=== PATIENT | female | born 1975 | race Caucasian/White ===

== ENCOUNTER 2016-08-14 17:20 | Emergency (ER) | payer BC ==
--- NOTE | 2016-08-14 18:47 | RAD ---
INDICATION: Shortness of breath. COMPARISON: Comparison is made with a prior chest x-ray study from [facility] 2008. TECHNIQUE: A portable view of the chest was obtained. FINDINGS: Cardiac and mediastinal contours appear to be within normal limits. The lungs are clear. No pleural effusion is seen. There appears to be interposition of the colon between the liver and right hemidiaphragm. IMPRESSION: NO EVIDENCE FOR ACUTE DISEASE.
[2016-08-14 18:57] LABS: Hematocrit 38 % (35-47); Hemoglobin 12.9 g/dl (12.0-16.0); Mean Corpuscular HGB Conc 34 g/dl (31-36); Mean Corpuscular Hemoglobin 32 pg (27-31); Mean Corpuscular Volume 95 fL (80-97); Mean Platelet Volume 9 um3 (7.4-10.4); Red Blood Count 3.98 10^6/ul (4.0-5.4); Red Cell Distribution Width 13 % (10.5-15)
[2016-08-14 19:12] LABS: ALT 19 U/L (7-52); Alkaline Phosphatase 47 U/L (34-104); BUN/Creatinine Ratio 8.5 (8-20); Blood Urea Nitrogen 7 mg/dL (6-24); C Reactive Protein 1.48 mg/L (< 5.00); CO2 Carbon Dioxide 24 mmol/L (22-32); Calcium 9.1 mg/dL (8.6-10.3); Chloride 100 mmol/L (101-111); Creatine Kinase 110 U/L (10-223); EGFR African American 98.3 (>60); EGFR Non-African American 76.5 (>60); Glucose 99 mg/dL (70-100); Sodium 132 mmol/L (133-145)
[2016-08-14 19:16] LABS: AST 26 U/L (13-39); Anion Gap 8 mmol/L (2-11); Potassium 3.7 mmol/L (3.5-5.0)
[2016-08-14] MEDS ORDERED: NS 0.9% 1000 ML* 1,000 ML IV ONE (19:38)
[2016-08-14] MEDS ORDERED: Iohexol 350* (CONTRAST) 500 ML MDV IV ONE (19:59)
[2016-08-14 20:02] LABS: Amylase 30 U/L (29-103); Lipase 22 U/L (11.0-82.0)
--- NOTE | 2016-08-14 21:18 | RAD ---
INDICATION: Dyspnea, right upper quadrant pain, history of melanoma. COMPARISON: Comparison is made with a prior CT of the chest, abdomen and pelvis from November 28, 2009. Correlation is also made with a prior chest x-ray study from August 14, 2016. TECHNIQUE: A CT angiogram of the chest and a CT of the abdomen and pelvis was performed with intravenous contrast following intravenous injection of 100 ml of Omnipaque 350 nonionic contrast. Contiguous axial sections were obtained from the lung apices through the symphysis pubis. Images were reconstructed in the coronal and sagittal planes. FINDINGS: CT ANGIOGRAM OF THE CHEST: There is relatively homogeneous opacification of the pulmonary arteries. No intraluminal filling defect or pulmonary embolism is seen. The heart is within normal limits in size. No pericardial effusion is present. The thoracic aorta is normal in caliber and demonstrates homogeneous contrast opacification without evidence for dissection. No significant enlarged mediastinal or hilar lymph nodes are seen. There are mild dependent bilateral lower lobe infiltrates most consistent with subsegmental atelectasis. No pleural effusion or pneumothorax is present. CT OF THE ABDOMEN AND PELVIS: There is [id number] enlargement of the liver without significant focal abnormality. The liver is decreased in attenuation consistent with fatty infiltration. The spleen is normal in size without focal abnormality. No calcified gallstones are seen. The pancreas appears to be within normal limits. The kidneys and adrenal glands are normal in size. No hydronephrosis is seen. No significant focal renal abnormality is seen. The abdominal aorta is normal in caliber. No significant enlarged retroperitoneal lymph nodes are seen. The stomach, small and large bowel appear nondistended. The appendix appears to be within normal limits. There is no evidence for diverticulitis or colitis. There is a anterior abdominal wall hernia containing fat, a small amount of fluid and mild stranding present in the midline just above the periumbilical region. There is also a smaller periumbilical hernia containing fat.. There is a right inguinal hernia containing fat. The uterus is normal in size and retroverted. There is a 2.0 x 1.0 cm involuting left follicular cyst. No free intraperitoneal air or fluid is seen. No significant focal osseous abnormality is seen. IMPRESSION: 1. NO EVIDENCE FOR PULMONARY EMBOLISM. 2. ANTERIOR ABDOMINAL AND RIGHT INGUINAL HERNIAS DESCRIBED. 3. HEPATOMEGALY AND HEPATIC STEATOSIS.
[2016-08-14 22:17] VITALS: BP 132/90
--- NOTE | 2016-08-15 03:01 | ED ---
Carley Weaver Alok, scribed for Darrel Cristina MD on 08/14/16 at 1958 . Shortness of Breath - HPI Summary HPI Summary: 40F presents to the ED for SOB at rest since last night. Pt states that her SOB worsens while in the supine position and improves when sitting up. Pt also notes right-sided abd pain described as sharp which comes and goes in waves lasting minutes at a time. Pt notes chest "heaviness" since today. Pt notes constant lower back pain worse on the left side. Pt also notes slight nausea as well as a subjective fever yesterday. Pt notes a right sided DALEY, right shoulder pain, and groin pain that comes and goes in waves. Pt notes a hernia over the umbilical from 2 years ago with soreness that comes and goes. Pt notes chronic lower extremity edema same as baseline. Pt denies vomiting or loss of appetite. Pt denies cough, rhinorrhea, or post nasal drip. Pt denies difficulty urinating or changes in urine color. Pt denies chills or diaphoresis. Pt denies wheezing. Pt denies leg pain. PMHx includes lymphedema and h/o melanoma. Pt is a daily ETOH drinker. - History of Current Complaint Chief Complaint: EDGeneral Time Seen by Provider: 08/14/16 19:12 Hx Obtained From: Patient Onset/Duration: Lasting Days, Still Present Current Severity: Moderate Dyspnea At: Rest Aggrevating Factors: Recumbent Position Alleviating Factors: Upright Position Associated Signs & Symptoms: Fever - subjective, Edema - Allergy/Home Medications Allergies/Adverse Reactions: Allergies Allergy/AdvReac Type Severity Reaction Status Date / Time Morphine Allergy Severe Rash And Verified 04/29/15 10:51 Itching PMH/Surg Hx/FS Hx/Imm Hx Endocrine/Hematology History: Denies: Hx Diabetes, Hx Thyroid Disease Cardiovascular History: Denies: Hx Hypertension, Hx Pacemaker/ICD Respiratory History: Denies: Hx Asthma, Hx Chronic Obstructive Pulmonary Disease (COPD) GI History: Denies: Hx Ulcer Sensory History: Denies: Hx Hearing Aid Psychiatric History: Denies: Hx Panic Disorder - Cancer History Cancer Type, Location and Year: stage three Melanoma 2009 - Surgical History Surgery Procedure, Year, and Place: chemo. x2. right wrist x2, RIGHT INGUINAL LYMPH NODES REMOVED, RIGHT UPPER LEG SURGERY FOR MELANOMA. TUBAL. HYSTERECTOMY Infectious Disease History: No Infectious Disease History: Denies: Hx Clostridium Difficile, Hx Hepatitis, Hx Human Immunodeficiency Virus (HIV), Hx of Known/Suspected MRSA, Hx Shingles, Hx Tuberculosis, Hx Known/ Suspected VRE, Hx Known/Suspected VRSA, History Other Infectious Disease, Traveled Outside the [place] in Last 30 Days - Family History Known Family History: Negative: Cardiac Disease, Hypertension, Diabetes, Blood Disorder - Social History Occupation: Employed Full-time Lives: With Family Alcohol Use: Daily Alcohol Amount: 1 GLASSS WINE/DAY Substance Use Type: Reports: None Smoking Status (MU): Never Smoked Tobacco Have You Smoked in the Last Year: No Review of Systems Positive: Fever - subjective. Negative: Chills, Skin Diaphoresis Positive: Chest Pain - "heaviness" Positive: Shortness Of Breath. Negative: Cough Positive: Abdominal Pain, Nausea. Negative: Vomiting Genitourinary: Other - No changes in urine color or difficulty urinating Positive: pain - groin Positive: Myalgia - right shoulder, Edema - chronic lower extremity, Other - lower back pain Positive: Headache All Other Systems Reviewed And Are Negative: Yes Physical Exam - Summary Physical Exam Summary: The patient is well-nourished in no acute distress and in no acute pain. The skin is warm and dry and skin color reflects adequate perfusion. HEENT: The head is normocephalic and atraumatic. The pupils are equal and reactive. The conjunctivae are clear and without drainage. Nares are patent and without drainage. Mouth reveals moist mucous membranes and the throat is without erythema and exudate. The external ears are intact. The ear canals are patent and without drainage. The tympanic membranes are intact. No rhinorrhea Neck is supple with full range of motion and non-tender. There are no carotid bruits. There is no neck vein distension. Respiratory: Chest is non-tender. Lungs are clear to auscultation and breath sounds are symmetrical and equal. Cardiovascular: Hear is regular rate and rhythm. There is no murmur or rub auscultated. There is no peripheral edema and pulses are symmetrical and equal. Abdomen: Right upper quadrant tenderness to palpitation. No distension. No guarding. No rebound. There are normal bowel sounds heard in all four quadrants and there is no organomegaly palpated. Musculoskeletal: Lumbar paratival muscular tenderness. No paraspinal tenderness Extremities are non-tender with full range of motion. There is good capillary refill. There is no peripheral edema or calf tenderness elicited. Neurological: Patient is alert and oriented to person, place and time. The patient has symmetrical motor strength in all four extremities. Cranial nerves are grossly intact. Deep tendon reflexes are symmetrical and equal in all four extremities. Psychiatric: The patient is slightly anxious. Triage Information Reviewed: Yes Vital Signs On Initial Exam: Initial Vitals Temp Pulse Resp BP Pulse Ox 97.6 F 78 20 137/100 100 08/14/16 17:25 08/14/16 17:25 08/14/16 17:25 08/14/16 17:25 08/14/16 17:25 Vital Signs Reviewed: Yes - [place] Coma Scale Coma Scale Total: 15 Diagnostics - Vital Signs Vital Signs Temp Pulse Resp BP Pulse Ox 08/14/16 17:28 98.0 F 72 20 137/100 100 08/14/16 17:25 97.6 F 78 20 137/100 100 - Laboratory Lab Results: Lab Results 08/14/16 08/14/16 08/14/16 Range/Units 18:45 18:45 18:45 WBC 7.0 (3.5-10.8) 10^3/ul RBC 3.98 L (4.0-5.4) 10^6/ul Hgb 12.9 (12.0-16.0) g/dl Hct 38 (35-47) % MCV 95 (80-97) fL MCH 32 H (27-31) pg MCHC 34 (31-36) g/dl RDW 13 (10.5-15) % Plt Count 188 (150-450) 10^3/ul MPV 9 (7.4-10.4) um3 Neut % (Auto) 56.2 (38-83) % Lymph % (Auto) 35.6 (25-47) % Parke % (Auto) 6.6 (1-9) % Eos % (Auto) 0.6 (0-6) % Baso % (Auto) 1.0 (0-2) % Absolute Neuts (auto) 3.9 (1.5-7.7) 10^3/ul Absolute Lymphs (auto) 2.5 (1.0-4.8) 10^3/ul Absolute Monos (auto) 0.5 (0-0.8) 10^3/ul Absolute Eos (auto) 0 (0-0.6) 10^3/ul Absolute Basos (auto) 0.1 (0-0.2) 10^3/ul Absolute Nucleated RBC 0 10^3/ul Nucleated RBC % 0 INR (Anticoag Therapy) 0.78 L (0.89-1.11) APTT 21.0 L (26.0-36.3) seconds D-Dimer, Quantitative < 200 (Less Than 230) ng/mL Sodium 132 L (133-145) mmol/L Potassium 3.7 (3.5-5.0) mmol/L Chloride 100 L (101-111) mmol/L Carbon Dioxide 24 (22-32) mmol/L Anion Gap 8 (2-11) mmol/L BUN 7 (6-24) mg/dL Creatinine 0.82 (0.51-0.95) mg/dL Est GFR ( Amer) 98.3 (>60) Est GFR (Non-Af Amer) 76.5 (>60) BUN/Creatinine Ratio 8.5 (8-20) Glucose 99 (70-100) mg/dL Lactic Acid (0.5-2.0) mmol/L Calcium 9.1 (8.6-10.3) mg/dL Total Bilirubin 0.30 (0.2-1.0) mg/dL AST 26 (13-39) U/L ALT 19 (7-52) U/L Alkaline Phosphatase 47 (34-104) U/L Total Creatine Kinase 110 (10-223) U/L CK-MB (CK-2) 2.3 (0.6-6.3) ng/mL Troponin I 0.00 (<0.04) ng/mL C-Reactive Protein 1.48 (< 5.00) mg/L B-Natriuretic Peptide ( - 100) pg/mL Total Protein 7.0 (6.4-8.9) g/dL Albumin 4.0 (3.2-5.2) g/dL Globulin 3.0 (2-4) g/dL Albumin/Globulin Ratio 1.3 (1-3) Beta HCG, Quant < 0.60 mIU/mL 08/14/16 08/14/16 Range/Units 18:45 18:45 WBC (3.5-10.8) 10^3/ul RBC (4.0-5.4) 10^6/ul Hgb (12.0-16.0) g/dl Hct (35-47) % MCV (80-97) fL MCH (27-31) pg MCHC (31-36) g/dl RDW (10.5-15) % Plt Count (150-450) 10^3/ul MPV (7.4-10.4) um3 Neut % (Auto) (38-83) % Lymph % (Auto) (25-47) % Parke % (Auto) (1-9) % Eos % (Auto) (0-6) % Baso % (Auto) (0-2) % Absolute Neuts (auto) (1.5-7.7) 10^3/ul Absolute Lymphs (auto) (1.0-4.8) 10^3/ul Absolute Monos (auto) (0-0.8) 10^3/ul Absolute Eos (auto) (0-0.6) 10^3/ul Absolute Basos (auto) (0-0.2) 10^3/ul Absolute Nucleated RBC 10^3/ul Nucleated RBC % INR (Anticoag Therapy) (0.89-1.11) APTT (26.0-36.3) seconds D-Dimer, Quantitative (Less Than 230) ng/mL Sodium (133-145) mmol/L Potassium (3.5-5.0) mmol/L Chloride (101-111) mmol/L Carbon Dioxide (22-32) mmol/L Anion Gap (2-11) mmol/L BUN (6-24) mg/dL Creatinine (0.51-0.95) mg/dL Est GFR ( Amer) (>60) Est GFR (Non-Af Amer) (>60) BUN/Creatinine Ratio (8-20) Glucose (70-100) mg/dL Lactic Acid 1.3 (0.5-2.0) mmol/L Calcium (8.6-10.3) mg/dL Total Bilirubin (0.2-1.0) mg/dL AST (13-39) U/L ALT (7-52) U/L Alkaline Phosphatase (34-104) U/L Total Creatine Kinase (10-223) U/L CK-MB (CK-2) (0.6-6.3) ng/mL Troponin I (<0.04) ng/mL C-Reactive Protein (< 5.00) mg/L B-Natriuretic Peptide 11 ( - 100) pg/mL Total Protein (6.4-8.9) g/dL Albumin (3.2-5.2) g/dL Globulin (2-4) g/dL Albumin/Globulin Ratio (1-3) Beta HCG, Quant mIU/mL Result Diagrams: 08/14/16 18:45 08/14/16 18:45 Lab Statement: Any lab studies that have been ordered have been reviewed, and results considered in the medical decision making process. - Radiology CXR Xray Interpretation: Positive (See Comments) - IMPRESSION: NO EVIDENCE FOR ACUTE DISEASE. Radiology Interpretation Completed By: Radiologist - CT Chest/Abd/Pel CTA CT Interpretation: Positive (See Comments) - 1. NO EVIDENCE FOR PULMONARY EMBOLISM. 2. ANTERIOR ABDOMINAL AND RIGHT INGUINAL HERNIAS DESCRIBED. 3. HEPATOMEGALY AND HEPATIC STEATOSIS. CT Interpretation Completed By: Radiologist - EKG 1735 Cardiac Rate: Other Rate - [address] Segment: Non-Specific EKG Interpretation: Left axis. Poor R-wave progression. No STEMI. Course/Dx - Course Course Of Treatment: Pt presents with SOB and abd pain. Concern for PE due to h/ o melanoma. Even though DDimer negative, still concerned for PE since pt is dismic when supine. - Diagnoses Differential Diagnosis/HQI/PQRI: Positive: CHF, IN, Pneumonia, Pulmonary Embolism, Other - cholelithiasis, ventral hernia Provider Diagnoses: Unspecified abdominal pain, SOB (shortness of breath) Discharge - Discharge Plan Condition: Stable Disposition: HOME Patient Education Materials: Abdominal Pain (ED), Dyspnea (ED) Referrals: Issac Aggarwal MD [Primary Care Provider] - [facility] [Outside] The documentation as recorded by the Carley levine Alok accurately reflects the service I personally performed and the decisions made by , Darrel Cristina MD.
== END 2016-08-14 22:16 | disposition home or self-care (01) ==
LOC: ED 17:20
DX: R10.9 Unspecified abdominal pain (principal); R06.02 Shortness of breath; R50.9 Fever, unspecified; R07.9 Chest pain, unspecified; R11.0 Nausea; R51 Headache
CPT/HCPCS: 36415; 71010; 71275; 74177; 80053; 82150; 82550; 82553; 83605; 83690; 83880; 84484; 84702; 85025; 85379; 85610; 85730; 86140; 93005; 99282; Q9967

== ENCOUNTER 2016-08-18 21:37 | Emergency (ER) | payer BC ==
[2016-08-18 22:01] VITALS: BP 136/99
[2016-08-18] MEDS ORDERED: Ketorolac INJ* 60 MG/2 ML VIAL IM ONE (22:05)
[2016-08-18] MEDS ORDERED: Ketorolac INJ* 30 MG/ML 1 ML VIAL ONE (22:22)
--- NOTE | 2016-08-18 22:22 | RAD ---
HISTORY: Trauma COMPARISONS: June 02, 2014 TECHNIQUE: Multiple contiguous axial CT scans were obtained of the head without intravenous contrast. FINDINGS: Evaluation is limited by streak artifact from metallic earrings, and by patient motion artifact. HEMORRHAGE/INFARCT: There is no hemorrhage or acute infarct. MASSES/SHIFT: There is no mass or shift. EXTRA-AXIAL SPACES: There are no extra-axial fluid collections. SULCI AND VENTRICLES: The sulci and ventricles are normal in size and position for the patient's stated age. CEREBRUM: There are no focal parenchymal abnormalities. BRAINSTEM: There are no focal parenchymal abnormalities. CEREBELLUM: There are no focal parenchymal abnormalities. VESSELS: The vessels are grossly normal. PARANASAL SINUSES: The paranasal sinuses are clear. ORBITS: The orbits are unremarkable. BONES AND SOFT TISSUE: No bone or soft tissue abnormalities are noted. OTHER: None IMPRESSION: LIMITED STUDY. NO ACUTE INTRACRANIAL PATHOLOGY.
[2016-08-18] MEDS ORDERED: Ketorolac INJ* 30 MG/ML 1 ML VIAL IV PUSH ONE (22:24)
--- NOTE | 2016-08-18 22:28 | RAD ---
HISTORY: Trauma, history of melanoma COMPARISONS: MRI dated January 30, 2015 TECHNIQUE: Multiple contiguous axial CT scans were obtained of the lumbar spine without intravenous contrast, with coronal and sagittal multiplanar reformations. FINDINGS: SPINAL CANAL: Evaluation of the central canal is limited on CT technique; however, there is no obvious canalicular mass or epidural hemorrhage. ALIGNMENT: The alignment is normal. VERTEBRAL BODIES: The vertebral bodies are preserved in height. The bones are normal in attenuation. JOINTS: There is no subluxation or dislocation MUSCULATURE: Unremarkable INTERVERTEBRAL DISCS: There is mild diffuse loss of intervertebral disc height throughout the spine. AXIAL IMAGES: There is no osseous neural foraminal narrowing or central canal stenosis. SOFT TISSUES: The bladder is distended. 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 IMPRESSION: NO ACUTE OSSEOUS INJURY TO THE LUMBAR SPINE
--- NOTE | 2016-08-18 22:30 | RAD ---
HISTORY: Trauma, head injury COMPARISONS: July 20, 2006 TECHNIQUE: Multiple contiguous axial CT scans were obtained of the cervical spine without intravenous contrast, with coronal and sagittal multiplanar reformations. FINDINGS: Evaluation is somewhat limited by patient motion and by metallic streak artifact from metallic earrings. BRAIN: The visualized brain is unremarkable CENTRAL CANAL: Evaluation of the central canal is limited on CT technique, however there is no obvious canalicular mass or epidural hemorrhage. ALIGNMENT: The alignment is normal, without subluxation or dislocation. VERTEBRAL BODIES: The odontoid process is intact. The atlantoaxial intervals are symmetric. The vertebral bodies are normal in attenuation, without fracture. JOINTS: There is osteoarthritis of the atlantoaxial articulation. There is no subluxation or dislocation. MUSCULATURE: Unremarkable INTERVERTEBRAL DISCS: There is mild diffuse loss of intervertebral disc height. AXIAL IMAGES: On axial images, there is no osseous neural foraminal narrowing or central canal stenosis. SOFT TISSUES: The visualized soft tissues of the neck are unremarkable. The prevertebral fat stripe is preserved. OTHER: None. IMPRESSION: MILD DEGENERATIVE CHANGES. NO ACUTE OSSEOUS INJURY TO THE CERVICAL SPINE
[2016-08-18] MEDS ORDERED: oxyCODONE/Acetamin 5/325 MG* TAB PO ONE (23:05)
[2016-08-18] MEDS ORDERED: LORazepam INJ* 2 MG/ML 1 ML VIAL IV ONE (23:05)
--- NOTE | 2016-08-19 07:28 | RAD ---
HISTORY: Left ankle trauma COMPARISONS: None VIEWS: 3, Frontal, lateral, and oblique views of the left ankle FINDINGS: BONE DENSITY: Normal. BONES: There is no displaced fracture. JOINTS: There is no arthropathy. ALIGNMENT: There is no dislocation. SOFT TISSUES: Unremarkable. OTHER FINDINGS: None. IMPRESSION: NO ACUTE OSSEOUS INJURY. IF SYMPTOMS PERSIST, RECOMMEND REPEAT IMAGING.
--- NOTE | 2016-08-19 07:30 | RAD ---
HISTORY: left knee trauma COMPARISONS: None VIEWS: 4, Frontal, lateral, axial, and oblique views of the left knee FINDINGS: BONE DENSITY: Normal. BONES: There is no displaced fracture. JOINTS: There is mild medial compartment and patellofemoral joint space narrowing. There is no suprapatellar joint effusion or lipohemarthrosis. ALIGNMENT: There is no dislocation. SOFT TISSUES: Unremarkable. OTHER FINDINGS: None. IMPRESSION: MILD OSTEOARTHRITIS. NO ACUTE OSSEOUS INJURY. IF SYMPTOMS PERSIST, RECOMMEND REPEAT IMAGING.
--- NOTE | 2016-08-19 11:08 | ED ---
Debbie Weaver Edward, scribed for Daljit Wilson MD on 08/18/16 at 2235 . Adult Trauma - HPI Summary HPI Summary: 40 y/o female BIBA to ED s/p fall and multiple LOC. Patient tripped while mowing her lawn and hit her head on a propane tank with unwitnessed LOC. Patient stayed laying on the ground until EMS arrival. On scene, EMS sat patient up, and she had another brief LOC. Associated sx: left ankle, neck, head and shoulder pain; nausea and anxiety. Patient remembers tripping. Denies blood thinners. - History of Current Complaint Chief Complaint: EDHeadInjury Stated Complaint: HEAD INJURY Time Seen by Provider: 08/18/16 21:43 Hx Obtained From: Patient Mechanism of Injury: Blunt Trauma - Fell while mowing lawn, hit head on propane tank, Direct Blow Mechanism of Injury (MVC): VS Stationary Object - Hit head on propane tank Loss of Consciousness: brief (seconds) Onset/Duration: Traumatic - Hit head after tripping while mowing lawn, Still Present - Pain in left ankle, head, neck and shoulder Onset of Pain: Immediate Onset Severity: Severe Current Severity: Moderate Location: Head, Extremities - Left ankle Associated Signs & Symptoms: Positive: Nausea/Vomiting, Other: - Anxiety - Allergy/Home Medications Allergies/Adverse Reactions: Allergies Allergy/AdvReac Type Severity Reaction Status Date / Time Morphine Allergy Severe Rash And Verified 04/29/15 10:51 Itching PMH/Surg Hx/FS Hx/Imm Hx Previously Healthy: Yes Endocrine/Hematology History: Denies: Hx Diabetes, Hx Thyroid Disease Cardiovascular History: Denies: Hx Hypertension, Hx Pacemaker/ICD Respiratory History: Denies: Hx Asthma, Hx Chronic Obstructive Pulmonary Disease (COPD) GI History: Denies: Hx Ulcer Sensory History: Denies: Hx Hearing Aid Psychiatric History: Denies: Hx Panic Disorder - Cancer History Cancer Type, Location and Year: stage three Melanoma 2009 - Surgical History Surgery Procedure, Year, and Place: chemo. x2. right wrist x2, RIGHT INGUINAL LYMPH NODES REMOVED, RIGHT UPPER LEG SURGERY FOR MELANOMA. TUBAL. HYSTERECTOMY Infectious Disease History: Denies: Hx Clostridium Difficile, Hx Hepatitis, Hx Human Immunodeficiency Virus (HIV), Hx of Known/Suspected MRSA, Hx Shingles, Hx Tuberculosis, Hx Known/ Suspected VRE, Hx Known/Suspected VRSA, History Other Infectious Disease, Traveled Outside the [place] in Last 30 Days - Family History Known Family History: Negative: Cardiac Disease, Hypertension, Diabetes, Blood Disorder - Social History Occupation: Employed Full-time Lives: With Family Alcohol Use: Daily Alcohol Amount: 1 GLASSS WINE/DAY Substance Use Type: Reports: None Smoking Status (MU): Never Smoked Tobacco Have You Smoked in the Last Year: No Review of Systems Constitutional: Negative Eyes: Negative ENT: Negative Cardiovascular: Negative Respiratory: Negative Positive: Nausea Genitourinary: Negative Positive: Decreased ROM - Left ankle, Other - Left ankle, head, neck and shoulder pain Skin: Negative Positive: Syncope - 2x with LOC Psychological: Normal All Other Systems Reviewed And Are Negative: Yes Physical Exam Triage Information Reviewed: Yes Vital Signs On Initial Exam: Initial Vitals Temp Pulse Resp BP Pulse Ox 98.4 F 79 20 136/99 96 08/18/16 21:43 08/18/16 21:43 08/18/16 21:43 08/18/16 21:43 08/18/16 21:43 Vital Signs Reviewed: Yes Appearance: Positive: Well-Appearing, No Pain Distress Skin: Positive: Warm, Skin Color Reflects Adequate Perfusion, Dry Head/Face: Positive: Normal Head/Face Inspection Eyes: Positive: Normal ENT: Positive: Normal ENT inspection Neck: Positive: Tenderness @ - Midline neck Respiratory/Lung Sounds: Positive: Clear to Auscultation, Breath Sounds Present Cardiovascular: Positive: RRR Abdomen Description: Positive: Nontender, Soft Bowel Sounds: Positive: Present Musculoskeletal: Positive: Pain @ - tender left distal clavicle; tender to ROM left ankle, no laxity Neurological: Positive: Normal Psychiatric: Positive: Normal, Affect/Mood Appropriate Diagnostics - Vital Signs Vital Signs Temp Pulse Resp BP Pulse Ox 08/18/16 23:20 16 08/18/16 21:43 98.4 F 79 20 136/99 96 - Laboratory Lab Statement: Any lab studies that have been ordered have been reviewed, and results considered in the medical decision making process. - CT Brain CT CT Interpretation: No Acute Changes - Limited study. No acute intracranial pathology. CT Interpretation Completed By: Radiologist CT Lumbar Spine CT Interpretation: No Acute Changes - No acute osseous injury to the lumbar spine CT Interpretation Completed By: Radiologist CT Cervical Spine CT Interpretation: No Acute Changes - Mild degenerative changes. No acute osseous injury to the cervical spine. CT Interpretation Completed By: Radiologist - EKG 1 EKG Interpretation: 21:43 - Sinus rhythm, nonspecific changes EKG Comparison: No Significant Change Adult Trauma Course/Dx - Course Course Of Treatment: Ms. Tijerina took a serious mechanical fall involving hitting her head and losing consciousness. When she sat up after regaining consciousness, it hqappened again. She came in C/O left shoulder and ankle pain and neck pain. She was tender to palpated her neck and clavicular area and tender to testing her ankle although there was no laxity. CT of her head and neck were negative. While she was here she developed pain in her left knee and low back and she refused x-rays of her shoulder. CTof her. LS spine was negative and plain films of her ankle and knee were also negative. She was given pain medications and musle relaxants, ankle immobilizer and crutches, and DC'd home in stable condition. - Diagnoses Provider Diagnoses: Ankle sprain, Head injury, Cervical strain, Low back strain, Knee contusion Discharge - Discharge Plan Condition: Stable Disposition: HOME Patient Education Materials: Cervical Strain (ED), Ankle Sprain (ED), Head Injury (ED), Contusion in Adults (ED) Referrals: Issac Aggarwal MD [Primary Care Provider] - Additional Instructions: Take Ibuprofen for pain. The documentation as recorded by the Debbie levine Edward accurately reflects the service I personally performed and the decisions made by , Daljit Wilson MD.
== END 2016-08-19 01:06 | disposition home or self-care (01) ==
LOC: ED 21:37
DX: S93.402A Sprain of unspecified ligament of left ankle, initial encounter (principal); S09.90XA Unspecified injury of head, initial encounter; S16.1XXA Strain of muscle, fascia and tendon at neck level, initial encounter; S39.012A Strain of muscle, fascia and tendon of lower back, initial encounter; S80.02XA Contusion of left knee, initial encounter; W01.198A Fall on same level from slipping, tripping and stumbling with subsequent striking against other object, initial encounter; Y93.H9 Activity, other involving exterior property and land maintenance, building and construction; Y92.007 Garden or yard of unspecified non-institutional (private) residence as the place of occurrence of the external cause; R11.2 Nausea with vomiting, unspecified; F41.9 Anxiety disorder, unspecified; Z88.5 Allergy status to narcotic agent
CPT/HCPCS: 70450; 72125; 72131; 93005; 96374; 96375; 99283; A9270-GY; J1885; J2060

== ENCOUNTER 2016-11-04 06:05 | Day surgery (SDC) | payer BC ==
[~2016-11-04 06:05] MED LIST: Buffered Lidocaine 0.9% SYRIN* 5 ML/SYR SYRINGE INTRADERM ONE; Sodium Citrate/Citric Acid* 15 ML UDC PO ONE
[2016-11-04] MEDS ORDERED: Sodium Citrate/Citric Acid* 15 ML UDC ONE (06:24)
[2016-11-04] MEDS ORDERED: Buffered Lidocaine 0.9% SYRIN* 5 ML/SYR SYRINGE ONE (06:25)
[2016-11-04] MEDS ORDERED: DiMENhydriNATE IV* 50 MG/ML VIAL IV PUSH PRN (07:41)
[2016-11-04] MEDS ORDERED: ceFAZolin 2 GM PREMIX (*) 50 ML IVPB ONE (07:50)
[2016-11-04] MEDS ORDERED: Bupivacaine 0.25% SDV* 30 ML ONE (08:06)
[2016-11-04] MEDS ORDERED: Cisatracurium* 2 MG/ML MDV 5 ML ONE (08:11)
[2016-11-04] MEDS ORDERED: Propofol* 10 MG/ML 20 ML BTL IV PUSH ONE (08:15)
[2016-11-04] MEDS ORDERED: Midazolam* 1 MG/ML 2 ML VIAL (2 MG) ONE (08:15)
[2016-11-04] MEDS ORDERED: fentaNYL* 50 MCG/ML 2 ML VIAL (100 MCG VIAL) ONE ×2 (08:15→10:05)
[2016-11-04] MEDS ORDERED: Lidocaine 2% PF * 5 ML VIAL ONE (08:15)
--- NOTE | 2016-11-04 09:48 | SURGPN ---
Brief Operative Note - Surgery Procedures: Procedures Pre-OP Diagnoses: ventral hernia Post-op Diagnosis: same Procedure: laparoscopic ventral hernia repair with mesh Surgeon: Janet Asst: SALLY Brown Anethesia: MADELAINE Nicole EBL: minimal IVF: 1300cc LR Specimen: none Drains: none
[2016-11-04] MEDS: fentaNYL* 50 MCG/ML 2 ML VIAL (100 MCG VIAL) IV PRN ×2 (10:08→10:29)
[2016-11-04] MEDS ORDERED: diPHENhydraMINE IV* 50 MG/ML 1 ml VIAL (BENADRYL) ONE (10:41)
[2016-11-04] MEDS ORDERED: HYDROcodone/ACETAMIN 5-325 MG* 1 TAB ONE (10:41)
[2016-11-04 11:39] VITALS: BP 119/75
--- NOTE | 2016-11-04 12:12 | OP ---
CC: Sera Hong NP * DATE OF PROCEDURE: 11/04/16 - [facility] DATE OF : 71. SURGEON: Dr. Yobani Gonzales. STREET LIGHT SERVICER: Tonya Garcia. ANESTHESIOLOGIST: Dr. Nicole. ANESTHESIA: General anesthesia. PRE-OP DIAGNOSIS: Ventral hernia. POST-OP DIAGNOSES: Umbilical hernia and epigastric hernia. OPERATIVE PROCEDURE: Laparoscopic ventral hernia repair with mesh. ESTIMATED BLOOD LOSS: Minimal. IV FLUIDS: 1300 cc of crystalloid fluids given. SPECIMEN: None. COUNT: Lap, pad, instrument count correct at the end of the procedure. DESCRIPTION OF PROCEDURE: The patient was identified in the preoperative area, marked and consent was signed, and the case reviewed again with her. She was taken to the operating room, placed on the operating table in supine position. Preoperative antibiotics were given. Sequential devices were placed on bilateral lower extremities. General anesthesia was induced. The patient's abdomen was then prepped and draped in a standard surgical fashion. A time-out was performed. A left upper quadrant incision was made at Figueroa's point. This was deepened down to the anterior fascia, which was elevated and a Veress needle inserted into the abdominal cavity, which was then allowed to insufflate to a pressure of 15 mmHg. The patient tolerated the insufflation well. Veress needle was removed and a 12 mm trocar was inserted. Laparoscope was inserted through this. There was no evidence of injury from the trocar insertion or from the Veress needle. Review of the abdomen showed a normal appearing bowel and liver. Hernia was identified in the epigastrium. There were no small bowel contents or omental contents in this. Additional trocars were then placed in the following position, a 5 mm in the subxiphoid area and a 5 mm in the left lower quadrant. Dissection was carried out. Both blunt and sharp dissections were used to reduce the hernia contents, which appeared to be a large portion of preperitoneal fat. The peritoneum was stripped away superiorly along the falciform ligament. The contents of the hernia were completely reduced, had good blood supply that came from the anterior abdominal wall in the area of the falciform. Review of the hernia showed that it was approximately 2 cm x 3 cm. Just inferior to this was an umbilical hernia, this was reduced in a similar fashion taking the preperitoneal fat and also stripping away the surrounding peritoneum. The hernias were measured together and measured to be about 6 x 5 cm when taken together and a 11.[address] mesh with echo positioning system was opened up, rolled up, and placed through the 12 mm port site. This was allowed to unfurl and brought through an incision at the mid portion of the hernia. We inflated the positioning system and tacked the mesh to the anterior abdominal wall with SecureStraps at approximately 1 cm distance. A mesh was was not taut. It was minimally floppy and it should be noted that we dropped the pressure down to 10 mm Hg to tack the mesh in place. The 12 mm trocar was removed and 0 Polysorb suture was used to close the anterior fascia at the site and the abdomen was allowed to collapse. The trocar was removed under direct vision and all 3 trocar incisions were reapproximated with 4-0 Monocryl subcuticular sutures and a 4-0 Monocryl placed at the positioning system tubing opening at the mid portion of the hernia. Sterile dressing was applied. The patient tolerated the procedure well. She was woken up at the OR and and transferred to the PACU in stable condition. [id number] #: [id number] MTDD
== END 2016-11-04 12:03 | disposition home or self-care (01) ==
LOC: OR 06:05
PROVIDERS: ATTEND Surgery
PROC: 0WUF4JZ Supplement Abdominal Wall with Synthetic Substitute, Percutaneous Endoscopic Approach (ICD-10-PCS; principal; 2016-11-04 07:45)
DX: K43.9 Ventral hernia without obstruction or gangrene (principal)
CPT/HCPCS: A9270-GY; C1776; C1781; J0690; J1200; J2250; J2704; J3010

== ENCOUNTER 2016-11-24 09:49 | Emergency (ER) | payer BC ==
--- NOTE | 2016-11-24 10:14 | ED ---
Lower Extremity - HPI Summary HPI Summary: 41 y/o female with pmh of melanoma, abdominal hernia repair lap 3 weeks ago. This morning was getting out of back of truck bed, straddling tail gate when gate moved, sending patient to ground. _+ abdominal pain, + vaginal pain, + lower back pain, + R knee pain. RIght knee pain worse, increased pain with movement, swelling at side. no prior knee injuries, ho melamona rxn on R thigh with lymphedema distal, unsure if swelling is lymphedema or injury. NO LOC, no Giraldo, no upper body pains After examination, patient went to bathroom prior to DC, was noted to have vaginal bleeding. menses ended ~ 1 week ago, no abnormal bleeding. - History of Current Complaint Chief Complaint: EDGeneral Stated Complaint: RT LEG PAIN Time Seen by Provider: 11/24/16 10:14 Hx Obtained From: Patient Hx Last Menstrual Period: TUBAL LIGATION Onset of Pain: Immediate Onset/Duration: Hours Severity Initially: Severe Severity Currently: Severe Pain Intensity: 10 Pain Scale Used: 0-10 Numeric Timing: Constant Location: Is Discrete @ - right knee, right vaginal area Character Of Pain: Sharp - with movement, Dull, Aching Associated Signs And Symptoms: Positive: Swelling, Bruising Aggravating Factor(s): Standing, Ambulation Alleviating Factor(s): Rest Able to Bear Weight: No - due to pain - Allergies/Home Medications Allergies/Adverse Reactions: Allergies Allergy/AdvReac Type Severity Reaction Status Date / Time Morphine Allergy Severe Rash And Verified 11/24/16 09:58 Itching Morphine and Related Allergy SEVERE Verified 11/24/16 09:58 ITCHING AND RASH PMH/Surg Hx/FS Hx/Imm Hx Previously Healthy: Yes - melanoma Endocrine/Hematology History: Reports: Hx Anemia - WHEN YOUNGER Denies: Hx Diabetes, Hx Thyroid Disease Cardiovascular History: Denies: Hx Hypertension, Hx Pacemaker/ICD Respiratory History: Denies: Hx Asthma, Hx Chronic Obstructive Pulmonary Disease (COPD) GI History: Denies: Hx Ulcer History: Reports: Hx Kidney Infection - IN THE PAST Musculoskeletal History: Reports: Hx Arthritis - LOWER BACK, LEFT HIP, RIGHT WRIST Sensory History: Denies: Hx Contacts or Glasses, Hx Hearing Aid Opthamlomology History: Denies: Hx Contacts or Glasses Neurological History: Reports: 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 c- section x2. right wrist x2, RIGHT INGUINAL LYMPH NODES REMOVED, RIGHT UPPER LEG SURGERY FOR MELANOMA. TUBAL. HYSTERECTOMY Hx Anesthesia Reactions: Yes - NAUSEA AND VOMITING- BETTER WITH PATCH BEHIND EAR Infectious Disease History: Unable to Obtain/Confirm Infectious Disease History: Denies: Hx Clostridium Difficile, Hx Hepatitis, Hx Human Immunodeficiency Virus (HIV), Hx of Known/Suspected MRSA, Hx Shingles, Hx Tuberculosis, Hx Known/ Suspected VRE, Hx Known/Suspected VRSA, History Other Infectious Disease, Traveled Outside the [place] in Last 30 Days - Family History Known Family History: Negative: Cardiac Disease, Hypertension, Diabetes, Blood Disorder - Social History Alcohol Use: Daily Alcohol Amount: 2 GLASSS WINE/DAY Substance Use Type: Reports: None Smoking Status (MU): Never Smoked Tobacco Have You Smoked in the Last Year: No Review of Systems Positive: Arthralgia, Myalgia, Decreased ROM, Edema - right knee Positive: Weakness All Other Systems Reviewed And Are Negative: Yes Physical Exam - Summary Physical Exam Summary: lower back with tenderness over PSIS to mid-spine with ecchymotic area over right PSIS region. neg log roll. inital examination of genital showed tenderness over the mons pubis, no bleeding appreciated. after patient using the restroom, + bleeding appreciate, no bleeding from vaginal canal, + laceration over R labia, ~ 1.5 cm, full thickness. Triage Information Reviewed: Yes Vital Signs On Initial Exam: Initial Vitals Temp Pulse Resp BP Pulse Ox 98.1 F 88 20 131/93 100 11/24/16 09:51 11/24/16 09:51 11/24/16 09:51 11/24/16 09:51 11/24/16 09:51 Vital Signs Reviewed: Yes Appearance: Positive: Well-Appearing, Well-Nourished, Pain Distress - mild to moderate Skin: Positive: Warm, Skin Color Reflects Adequate Perfusion Head/Face: Positive: Normal Head/Face Inspection Eyes: Positive: EOMI Neck: Positive: Supple, Nontender, No Lymphadenopathy Respiratory/Lung Sounds: Positive: Clear to Auscultation, Breath Sounds Present Cardiovascular: Positive: Normal, RRR, Pulses are Symmetrical in both Upper and Lower Extremities Abdomen Description: Positive: No Organomegaly, Soft, Other: - tenderness over epigastric area, patient states pain has been present since lap hernia repair, no tenderness with deep palpation, neg CVA tenderness b/l, + inguinal tenderness over R side. 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 no joint effusion noted. neg calf pain, fullPROM, AROM of ankle, foot., Other Neurological: Positive: Normal, Sensory/Motor Intact, Alert, Oriented to Person Place, Time, CN Intact II-III, Facial Symmetry, Speech Normal Psychiatric: Positive: Normal AVPU Assessment: Alert - Kit Coma Scale Coma Scale Total: 15 Procedures - Laceration/Wound Repair 1 Location: Other - labia, right Description: Linear Anesthesia: Local, Marcaine Length, Depth and Shape: linear 1.5 cm x 0.5 cm Betadine Prep?: No - chlorhexadine Laceration/Wound Explored: clean Closure: Single Layer Debridement: minimal Suture Type: Nylon Number of Sutures: 2 Diagnostics - Vital Signs Vital Signs Temp Pulse Resp BP Pulse Ox 11/24/16 09:51 98.1 F 88 20 131/93 100 - Laboratory Lab Statement: Any lab studies that have been ordered have been reviewed, and results considered in the medical decision making process. Lower Extremity Course/Dx - Course Course Of Treatment: laceration repair, radiograph negative, follow up with PCP within 5 days for suture removal. pain medication given - Diagnoses Provider Diagnoses: Laceration, Injury of knee, right Discharge - Discharge Plan Condition: Fair Disposition: HOME Prescriptions: Diazepam TAB(*) [Valium TAB(*)] 5 mg PO Q6H PRN #15 tab MDD 4 PRN Reason: muscle spasm Hydrocodone-Acetaminophen [Vinita 5-325 mg] 1 tab PO Q6H #15 tab MDD 4 Naproxen [Naproxen 500 mg] 500 mg PO Q8H PRN #10 tab PRN Reason: Pain diPHENhydraMINE PO* [Benadryl PO 25 MG TAB*] 25 mg PO Q6H PRN #15 tab PRN Reason: Itching Patient Education Materials: Laceration (ED), Knee Pain (ED), Knee Immobilizer (ED) Forms: *Work Release Referrals: Sera Banks NP [Primary Care Provider] - Abdi Hunt MD [Medical Doctor] - Additional Instructions: - Weight bearing as tolerated - Keep wrapped, immobilizer to help with support, swelling - Follow up within 3-5 days with ortho if no improvement - Ice, elevate knee as much as possible - Valium as needed for muscle spasm - Follow up with hernia surgeon within 1 week for re-eval - Naproxen for pain, swelling twice daily - Vinita as needed for severe pain - Sutures in right labia should be removed within 5 days, may be removed at primary physician office or return to ED. Return with increased swelling, pain , uncontrolled bleeding. rinse after bowel motions, urination.
[2016-11-24] MEDS ORDERED: HYDROcodone/ACETAMIN 5-325 MG* 1 TAB PO ONE (10:30)
[2016-11-24] MEDS ORDERED: diPHENhydraMINE PO* 50 MG PO ONE (10:30)
[2016-11-24] MEDS ORDERED: Ondansetron ODT TAB* 4 MG SL PRN (11:37)
--- NOTE | 2016-11-24 11:37 | RAD ---
Indication: Right knee pain. 4 views of the right knee demonstrates no fracture. No joint effusion is noted. IMPRESSION: No fracture of the right knee is noted.
--- NOTE | 2016-11-24 11:38 | RAD ---
Indication: Right ankle pain. 3 views of the right ankle demonstrates no fracture. No other bone or joint abnormality is noted. IMPRESSION: No fracture of the right ankle is noted.
[2016-11-24 13:52] VITALS: BP 135/82
--- NOTE | 2016-11-24 13:57 | RAD ---
INDICATION: Vaginal bleeding and pain post fall. Post hernia repair in October 2016. COMPARISON: August 14, 2016 CT. TECHNIQUE: Multidetector CT images were obtained from the lung bases to the ischial tuberosities. Evaluation of the viscera is limited without IV contrast. Multiplanar reformation. REPORT: The visualized inferior thorax is remarkable for a chronic pectus excavatum deformity. Minimal RIGHT basilar dependent subsegmental atelectasis. Negative for pleural or pericardial effusions. No CT abnormality of the unenhanced liver. Largely decompressed gallbladder limiting assessment without gross abnormality. Unremarkable pancreas and spleen. Moderate gastric distention with liquid and solid food stuff. Negative for CT abnormality of the unopacified upper GI or small bowel. The appendix is not visualized. Negative for RIGHT lower quadrant inflammatory change to raise concern for appendicitis. 3.1 cm AP by 3.6 cm postoperative seroma or hematoma at the site of the reduced/repaired supraumbilical ventral hernia. Associated mild edema within the previously herniated abdominal fat deep to the site of the hernia repair. Normal adrenal glands. Negative for hydronephrosis or conspicuous focal renal lesions. Normal variant LEFT extrarenal pelvis. Unremarkable nondilated ureters. Partially distended urinary bladder with upper normal wall thickness. Unremarkable anteverted uterus and adnexal regions. No CT abnormality at the vagina or perineum. Negative for retroperitoneal lymphadenopathy. Normal diameter abdominal aorta and iliac arteries. Physiologic partial distention of the IVC. No retroperitoneal or superficial soft tissue hematoma evident. Negative for suspicious osseous lesions or fracture. IMPRESSION: 1. No traumatic soft tissue or osseous injury within the perineum region identified. Correlate with clinical assessment and consider ultrasound for further assessment if deemed appropriate. 2. 3.1 cm AP by 3.6 cm postoperative seroma or hematoma at the site of the reduced/repaired supraumbilical ventral hernia. Associated mild edema within the previously herniated abdominal fat deep to the site of the hernia repair. Small fat and fluid containing RIGHT femoral hernia without significant change in size however the fluid within the hernia is new. 3. Negative for lymphadenopathy. 4. Negative for suspicious osseous lesions.
[2016-11-24] MEDS ORDERED: Bupivacaine 0.25% MDV* 50 ML VIAL INJ ONE (14:06)
[2016-11-24] MEDS ORDERED: Bupivacaine 0.25% MDV* 50 ML VIAL ONE (14:09)
== END 2016-11-24 15:10 | disposition home or self-care (01) ==
LOC: ED 09:49
DX: S31.41XA Laceration without foreign body of vagina and vulva, initial encounter (principal); S89.91XA Unspecified injury of right lower leg, initial encounter; C43.9 Malignant melanoma of skin, unspecified; V69.88XA Occupant (driver) (passenger) of heavy transport vehicle injured in other specified transport accidents, initial encounter; Y92.9 Unspecified place or not applicable
CPT/HCPCS: 12001; 74176; 99283; A9270-GY

== ENCOUNTER 2017-03-12 12:24 | Emergency (ER) | payer BC ==
[2017-03-12 12:29] VITALS: BP 104/56
--- OUTSIDE RECORDS SUMMARY | 2017-03-12 13:04 | XMS REPORT ---
:1975 External Reference #:[id number] Author Organization [facility] Address [address] [address] Phone [phone] Care Team Providers Name Role Phone Sera Banks FNP Primary Care Physician Unavailable Payers Type Date Identification Numbers Payment Provider Subscriber Commercial Effective: Policy Number: [employer] Marina Tijerina 2016 [id number] PayID: [id number] [address] [address] [place] [address] Medigap Part B Expires: 2016 Policy Number: [id number] Medicaid Marina Tijerina Group Name: 1 1 [address] PayID: [id number] [place] [address] Problems Date Description Provider Status Onset: 12/24/2016 Closed fracture of upper end of tibia Abdi Hunt MD Active Onset: 12/24/2016 Current tear of medial cartilage AND/OR Abdi Hunt MD Active meniscus of knee Onset: 12/24/2016 Sprain of cruciate ligament of knee Abdi Hunt MD Active Family History Date Family Member(s) Problem(s) Comments General Hypertension General Stroke Social History Type Date Description Comments Marital Status Single Lives With Occupation Currently Working ETOH Use Currently consumes alcohol ETOH Use Drinks 3 Alcoholic Beverages Per Day Smoking Patient has never smoked Recreational Drug Use Denies Drug Use Exercise Type/Frequency Exercises regularly Allergies, Adverse Reactions, Alerts Date Description Reaction Status Severity Comments 09/29/2016 Morphine Urticaria active Medications Medication Date Status Form Strength Qnty SIG Indications Ordering Provider Multi Vitamin Active Tablets 1 by Unknown Daily 000 mouth every day (on hold) Hydrocodone-Ac Hx Tablets 5-325mg 16tabs 1 tab by Nelida Maciel etaminophen 017 mouth [place], every 6 HUMAN RESOURCES TRAINER hours as needed for pain Hydrocodone-Ac Hx Tablets 5-325mg 14tabs 1 tablet K42.9 Yobani Murillo etaminophen 017 by mouth MD Janet every 4 hours as needed pain Vital Signs Date Vital Result Comment 02/16/2017 Height 68.5 inches 5'8.50" Weight 170.00 lb Respiratory Rate 14 /min Pain Level 3 BMI (Body Mass Index) 25.5 kg/m2 01/14/2017 Height 68.5 inches 5'8.50" Weight 170.00 lb BP Systolic 114 mmHg BP Diastolic 72 mmHg Respiratory Rate 18 /min Pain Level 3 BMI (Body Mass Index) 25.5 kg/m2 12/24/2016 Height 68.5 inches 5'8.50" Weight 170.00 lb BP Systolic 118 mmHg BP Diastolic 78 mmHg Respiratory Rate 18 /min Pain Level 4 BMI (Body Mass Index) 25.5 kg/m2 12/03/2016 Height 68.5 inches 5'8.50" Weight 170.00 lb Heart Rate 60 /min BP Systolic 115 mmHg BP Diastolic 88 mmHg Body Temperature 97.8 F Pain Level 7 BMI (Body Mass Index) 25.5 kg/m2 12/03/2016 Heart Rate 84 /min BP Systolic 100 mmHg BP Diastolic 72 mmHg Respiratory Rate 16 /min Body Temperature 97.4 F 11/12/2016 Heart Rate 68 /min BP Systolic 120 mmHg BP Diastolic 82 mmHg Respiratory Rate 16 /min Body Temperature 97.4 F 2016 Height 68.5 inches 5'8.50" Weight 180.00 lb Heart Rate 72 /min BP Systolic 120 mmHg BP Diastolic 70 mmHg Respiratory Rate 16 /min Body Temperature 97.0 F BMI (Body Mass Index) 27.0 kg/m2 Results Description No Information Procedures Date CPT Code Description Status 11/04/2016 17542 Laps Repair Hernia Except Incal/Ingun Reducible Completed 11/30/2012 92862 ECHO Transthoracic, Real-Time 2D With Doppler And Color Completed Flow Encounters Type Date Location Provider CPT E/M Dx Office Visit 01/14/2017 [facility] [place] [address] S83.511A 10:30a [facility] S83.231A S82.144A S83.511D S83.231D S82.144D Office Visit 12/24/2016 11:15a [facility] [place] [address] S83.511A [facility] S83.231A S82.144A S83.411A Office Visit 12/03/2016 1:30p [facility] [place] [address] M25.561 [facility] M25.461 R60.0 Office Visit 2016 10:30a [facility] [place] [address] K42.9 [facility] K43.9 C43.71 Office Visit 11/30/2012 12:45p [facility] M.D. 32309 785.2 [facility] Plan of Care 02/16/2017 - Abdi Hunt, MDS83.511D Sprain of anterior cruciate ligament of right knee, subsFollow up:Follow up: after MRIS83.231D Complex tear of medial mensc, current injury, r knee, subsS82.144D Nondisp bicondylar fx r tibia, subs for clos fx w routn healNew Xrays:MRI Knee Right W/O
--- NOTE | 2017-03-12 13:24 | RAD ---
HISTORY: Right knee pain, trauma COMPARISONS: February 16, 2017, November 14, 2016 VIEWS: 4, Frontal, lateral, axial, and oblique views of the right knee FINDINGS: BONE DENSITY: Normal. BONES: There is a small well-corticated bone fragment off the lateral tibial plateau that appears to correspond to the avulsion injury noted on previous examinations. This appears chronic. There is no acute displaced fracture or dislocation. JOINTS: There is no arthropathy. There is no suprapatellar joint effusion or lipohemarthrosis. ALIGNMENT: There is no dislocation. SOFT TISSUES: Unremarkable. OTHER FINDINGS: None. IMPRESSION: CHRONIC APPEARING AVULSION INJURY OF THE LATERAL TIBIAL PLATEAU. NO ACUTE OSSEOUS INJURY. IF SYMPTOMS PERSIST, RECOMMEND REPEAT IMAGING
--- NOTE | 2017-03-30 11:47 | ED ---
Lower Extremity - HPI Summary HPI Summary: Patient presents to the ED with CC of right knee pain after slipping on the ice this morning. She has had a previous knee injury and arrives in a brace. Previous injury includes avulsion injury of the lateral tibia plateu. She has been seeing Dr. Hunt and completing physical therapy. After her fall this morning, she states she feels as though she is back to her baseline after the first injury and notes that she feels she lost all her progres. Pain is located posterior and lateral. at bedside. Denies any other injuries including head injury. Pain is currently a 5/10 and throbbing. - History of Current Complaint Chief Complaint: EDExtremityLower Stated Complaint: RIGHT KNEE PAIN Time Seen by Provider: 03/12/17 12:26 Hx Obtained From: Patient Hx Last Menstrual Period: TUBAL LIGATION Onset of Pain: Minutes Onset/Duration: Minutes - She was Severity Initially: Moderate Severity Currently: Moderate Pain Intensity: 6 Pain Scale Used: 0-10 Numeric Timing: Constant Location: Is Discrete @ - Right knee Character Of Pain: Aching Associated Signs And Symptoms: Positive: Swelling. Negative: Redness, Bruising Aggravating Factor(s): Standing Alleviating Factor(s): Rest Able to Bear Weight: No - Risk Factors Gout Risk Factors: Negative DVT Risk Factors: Negative Septic Arthritis Risk Factor: Negative - Allergies/Home Medications Allergies/Adverse Reactions: Allergies Allergy/AdvReac Type Severity Reaction Status Date / Time MS Morphine [Morphine] Allergy Severe Rash And Verified 02/25/17 12:43 Itching MS Morphine and Related Allergy SEVERE Verified 02/25/17 12:43 [Morphine and Related] ITCHING AND RASH PMH/Surg Hx/FS Hx/Imm Hx Previously Healthy: Yes Endocrine/Hematology History: Reports: Hx Anemia - WHEN YOUNGER Denies: Hx Diabetes, Hx Thyroid Disease Cardiovascular History: Denies: Hx Hypertension, Hx Pacemaker/ICD Respiratory History: Denies: Hx Asthma, Hx Chronic Obstructive Pulmonary Disease (COPD) GI History: Denies: Hx Ulcer History: Reports: Hx Kidney Infection - IN THE PAST Denies: Hx Renal Disease Musculoskeletal History: Reports: Hx Arthritis - LOWER BACK, LEFT HIP, RIGHT WRIST Sensory History: Denies: Hx Contacts or Glasses, Hx Hearing Aid Opthamlomology History: Denies: Hx Contacts or Glasses Neurological History: Reports: 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 c- section x2. right wrist x2 - FRACTURED- ORIF. RIGHT INGUINAL LYMPH NODES REMOVED, RIGHT UPPER LEG SURGERY FOR MELANOMA. TUBAL LIGATION Hx Anesthesia Reactions: Yes - NAUSEA AND VOMITING- BETTER WITH PATCH BEHIND EAR - Immunization History Hx Pertussis Vaccination: No Immunizations Up to Date: Unable to Obtain/Confirm Infectious Disease History: No Infectious Disease History: Denies: Hx Clostridium Difficile, Hx Hepatitis, Hx Human Immunodeficiency Virus (HIV), Hx of Known/Suspected MRSA, Hx Shingles, Hx Tuberculosis, Hx Known/ Suspected VRE, Hx Known/Suspected VRSA, History Other Infectious Disease, Traveled Outside the [place] in Last 30 Days - Family History Known Family History: Negative: Cardiac Disease, Hypertension, Diabetes, Blood Disorder - Social History Occupation: Employed Full-time Lives: With Family Alcohol Use: Daily Alcohol Amount: 2 GLASSS WINE/DAY Hx Substance Use: No Substance Use Type: Reports: None Hx Tobacco Use: No Smoking Status (MU): Never Smoked Tobacco Have You Smoked in the Last Year: No Review of Systems Constitutional: Negative Negative: Fever, Chills, Fatigue, Skin Diaphoresis Eyes: Negative Cardiovascular: Negative Genitourinary: Negative Positive: no symptoms reported, see HPI Positive: Arthralgia Positive: Other - swelling Psychological: Normal All Other Systems Reviewed And Are Negative: Yes Physical Exam Triage Information Reviewed: Yes Vital Signs On Initial Exam: Initial Vitals Temp Pulse Resp BP Pulse Ox 98.6 F 95 18 104/56 97 03/12/17 12:26 03/12/17 12:26 03/12/17 12:26 03/12/17 12:26 03/12/17 12:26 Vital Signs Reviewed: Yes Appearance: Positive: Well-Appearing, Well-Nourished Skin: Positive: Warm, Skin Color Reflects Adequate Perfusion Head/Face: Positive: Normal Head/Face Inspection Eyes: Positive: EOMI, FUNMI Neck: Positive: Supple, No Lymphadenopathy Respiratory/Lung Sounds: Positive: Clear to Auscultation, Breath Sounds Present Cardiovascular: Positive: RRR, Pulses are Symmetrical in both Upper and Lower Extremities Musculoskeletal: Positive: Pain @ - Right knee pain and swelling, worse with palpation to the lateral side Neurological: Positive: Speech Normal Psychiatric: Positive: Affect/Mood Appropriate Diagnostics - Vital Signs Vital Signs Temp Pulse Resp BP Pulse Ox 03/12/17 12:26 98.6 F 95 18 104/56 97 - Laboratory Lab Statement: Any lab studies that have been ordered have been reviewed, and results considered in the medical decision making process. Lower Extremity Course/Dx - Course Course Of Treatment: Xray of the knee obtained which shows the chronic avulsion injury with no new fractures. She is encouraged to continue with her knee brace and continue with ibuprofen 3x daily. I have given her a prescription for tramadol for the next 3 days for symptoms not well controlled with ibuprofen. She is OK with this plan and I will at this time refer her back to Dr. Hunt. I have been unable to assess physically any special knee exams d/t injury and pain. - Diagnoses Provider Diagnoses: Pain of right knee after injury Discharge - Discharge Plan Condition: Stable Disposition: HOME Prescriptions: Ibuprofen TAB* [Motrin TAB* 600 MG] 600 mg PO Q8H PRN #30 tab PRN Reason: Pain traMADol TAB* [Ultram*] 50 mg PO Q6HR PRN #8 tab MDD 4 PRN Reason: Pain Patient Education Materials: Knee Pain (ED) Referrals: Sera Banks NP [Primary Care Provider] - Abdi Hunt MD [Medical Doctor] - Additional Instructions: Please follow up with Dr. Hunt As discussed, no new findings on xray were seen today Continue with brace Rest Ice Ibuprofen 600mg three times daily On opposite schedule of the ibuprofen, take the tramadol up to 4 times daily for pain
== END 2017-03-12 13:55 | disposition home or self-care (01) ==
LOC: ED 12:24
DX: S89.91XA Unspecified injury of right lower leg, initial encounter (principal); M25.561 Pain in right knee; W19.XXXA Unspecified fall, initial encounter; Y92.9 Unspecified place or not applicable
CPT/HCPCS: 99282

== ENCOUNTER 2018-01-03 06:22 | Day surgery (SDC) | payer BC ==
--- NOTE | 2017-11-01 06:58 | HP ---
PREOPERATIVE HISTORY AND PHYSICAL: DATE OF SURGERY: 11/24/17 DATE OF OFFICE VISIT: 10/28/17 ATTENDING SURGEON: Abdi Hunt MD * (DICTATED BY TAMIKA RAZA) PROCEDURE: Right knee arthroscopy, anterior cruciate ligament reconstruction with allograft. CHIEF COMPLAINT: Right knee pain and instability. HISTORY OF PRESENT ILLNESS: Marina is a 42-year-old female who presents to the clinic for followup of her right knee ACL injury with the plateau fracture. She continued to have pain and instability despite conservative measures and has therefore agreed to undergo right knee arthroscopy, anterior cruciate ligament reconstruction with allograft with Dr. Hunt on 11/24/17. PAST MEDICAL HISTORY: Melanoma, osteoarthritis, anemia, heart murmur from childhood. PAST SURGICAL HISTORY: x2, right wrist x2, right leg tumor removal, right lymph node removal from groin, hernia repair. Denies prior complications with anesthesia. MEDICATIONS: Naproxen sodium 220 mg 1 tablet a day. ALLERGIES: MORPHINE. FAMILY HISTORY: Positive for hypertension, CVA, and cancer. SOCIAL HISTORY: She lives with her . She denies tobacco use. She reports occasional alcohol consumption. She exercises occasionally. She is right hand dominant. REVIEW OF SYSTEMS: A 14-point review of systems was reviewed with the patient. Positive for current complaint, otherwise negative. Denies history of DVT, history of bleeding disorder, chest pain, shortness of breath, or fevers, chills. PHYSICAL EXAMINATION GENERAL: A 42-year-old, well-developed, well-nourished female, in no acute distress. Alert and oriented x3. Appropriate mood and affect. Appropriate balance and coordination of the upper extremities. VITAL SIGNS: Height 78.5, weight 170, blood pressure 130/74, respiratory rate 18, BMI 25.5. HEENT: Normocephalic, atraumatic. PERRLA. Throat: Clear. NECK: Supple. PULMONARY: Lungs are clear to auscultation bilaterally. No wheezing, rhonchi, or rales. CARDIO: Regular rate and rhythm. S1, S2. No murmurs, gallops, or rubs. No edema. ABDOMEN: Positive bowel sounds, soft, nontender. NEURO: Alert and oriented x3. Cranial nerves grossly intact. Sensation intact to light touch. MUSCULOSKELETAL: Right lower extremity, skin is intact. No warmth or erythema. No abrasions or open wounds. No obvious deformity. Mild effusion. Tenderness over the medial joint line. 2A Charlie. Negative posterior drawer. Calf soft, nontender. +5/5 strength with dorsiflexion and plantar flexion. Sensation intact to light touch distally. DIAGNOSTIC STUDIES: MRI of the right knee revealed ACL rupture with the medial meniscus tear. ASSESSMENT: Right knee ACL tear. PLAN: Marina is a 42-year-old female who presents to the clinic for followup of her right knee pain and instability due to an ACL injury. She has failed conservative measures, continues to have symptoms, and has therefore agreed to undergo a right knee arthroscopy, anterior cruciate ligament reconstruction with allograft with Dr. Hunt on 11/24/17. Risks of surgery to include injury to blood vessels, nerves or surrounding structures, bleeding, numbness, stiffness, infection, persistent pain, need for further surgery, risk of DVT or PE, and risk of anesthesia were discussed with the patient. She has agreed to undergo the procedure. She will follow up in 8 days postop for followup and suture removal. Percocet will be used for postop pain management. TAMIKA RAZA [id number]/[facility] #: [id number] PAIGE
[2018-01-03] MEDS ORDERED: Sodium Citrate/Citric Acid* 15 ML UDC ONE (06:23)
[2018-01-03] MEDS ORDERED: ceFAZolin 2 GM PREMIX in ORs 2 GM/50 ML BAG IVPB ONE (06:30)
[2018-01-03] MEDS ORDERED: Propofol* 10 MG/ML 20 ML BTL IV PUSH ONE (07:18)
[2018-01-03] MEDS ORDERED: Lidocaine 2% PF * 5 ML VIAL ONE (07:18)
[2018-01-03] MEDS ORDERED: Lidocaine 1% MPF wEPI 200,000* 30 ML SDV ONE (07:19)
[2018-01-03] MEDS ORDERED: ROPIVACAINE 5 MG/ML 30 ML BTL (0.5%) ONE (07:20)
[2018-01-03] MEDS ORDERED: fentaNYL* 50 MCG/ML 2 ML VIAL (100 MCG VIAL) ONE (07:20)
[2018-01-03] MEDS ORDERED: fentaNYL* 50 MCG/ML 2 ML VIAL (100 MCG VIAL) IV PRN (07:23)
[2018-01-03] MEDS ORDERED: Naloxone* 0.4 MG/ML 1 ML VIAL IV PRN (07:23)
[2018-01-03] MEDS ORDERED: Dexamethasone IV* 4 MG/ML 1 ML (4 MG) ONE (07:40)
[2018-01-03] MEDS ORDERED: diPHENhydraMINE IV* 50 MG/ML 1 ml VIAL (BENADRYL) ONE (07:40)
[2018-01-03] MEDS ORDERED: Ketorolac INJ* 30 MG/ML 1 ML VIAL ONE (08:11)
[2018-01-03] MEDS ORDERED: oxyCODONE/Acetamin 5/325 MG* TAB ONE (09:11)
[2018-01-03] MEDS ORDERED: diPHENhydraMINE PO* 25 MG ONE (09:51)
[2018-01-03 10:24] VITALS: BP 108/68
--- NOTE | 2018-01-03 12:14 | OP ---
DATE OF OPERATION: 01/03/18 [facility] DATE OF : 71 SURGEON: Abdi Hunt MD CASTING FINISHER: TAMIKA Shah. An respiratory care assistant was needed for the entirety of the case to help with positioning, retraction and was utilized throughout all portions of the case. ANESTHESIOLOGIST: Dr. Nicole. ANESTHESIA: General. PRE-OP DIAGNOSIS: Right knee grade 3 anterior cruciate ligament rupture. POST-OP DIAGNOSIS: Right knee grade 3 anterior cruciate ligament rupture with lateral tibial plateau chondrosis. OPERATIVE PROCEDURE: 1. Right knee arthroscopy with anterior cruciate ligament reconstruction using BTB allograft. 2. Chondroplasty of the lateral tibial plateau. COMPLICATIONS: None. ESTIMATED BLOOD LOSS: Minimal. TOURNIQUET TIME: Zero minutes. IMPLANTS USED: One SoftSilk 7 x 20 and one 9 x 25. INDICATIONS: Marina Tijerina is a 42-year-old female who sustained injury to her knee over a year ago, 11/24/16, when she stepped out of a truck. She had an ACL rupture. She tried to treat this conservatively. Had persistent episodes of instability. She also had an occult fracture at this time. Her knee is complicated from a previous surgery from a tumor from her right leg. Risks and benefits of surgery were discussed at length and included but not limited to bleeding, infection, damage to nerves, vessels, surrounding structures, wound nonhealing, persistent pain, need for surgery, scarring, stiffness, incomplete relief of symptoms and risk of anesthesia. DESCRIPTION OF PROCEDURE: The patient was greeted in the preoperative area by the attending surgeon. The correct extremity was marked and consent was confirmed. The patient was brought back to the operating suite where she was placed in supine position on the operating table. She then underwent general anesthesia and LMA intubation after which she was appropriately positioned on the bed. The right leg was then prepped and draped in the usual sterile fashion beginning with chlorhexidine soap, scrub, and alcohol wipe and a final prep with ChloraPrep. After appropriate surgical pause indicating side, site, procedure, and administration of antibiotics, the right knee was intra-articularly injected with 1% lidocaine with epinephrine, after which the anterolateral portal was made sharply with an 11-blade, the scope was introduced through the joint. The joint was examined. There was a small area of grade 3 chondrosis about the medial femoral condyle which was a small ridge and then areas of grade 2 changes where there was a bone bruise or impaction injury. The remainder of the chondral had grade 0 to 1 changes. The medial plateau had grade 0 to 1 changes. Medial meniscus was intact. ACL was completely ruptured with evidence of no ACL on the lateral wall. There was a small stump attached to the tibia and the PCL. The lateral compartment was examined. There were grade 0 to 1 changes of the lateral femoral condyle. Lateral plateau had grade 2 changes with unstable fraying and there was evidence of previous lateral meniscus tear that had healed back on its own. The remainder of the meniscus looked fine. The patellofemoral joint had grade 0 changes. Medial and lateral gutters were intact without any loose body or debris. The respiratory care assistant was preparing the thawed BTB allograft. Once the graft was prepared, it was placed on 15 pounds of tension for at least 15 minutes. Attention was then directed to the notch. The shaver was used to debride back any remnants and scar tissue. The biters and diaz were then used to debride back the ACL stump to the tibia. The lateral wall was prepared using electrocautery device. A starting awl was then used to darcie the provisional position. The bone quality was quite poor. The tip- to-tip guide was then placed in the center of the tibial footprint and drilled. Once the appropriate position was identified, a size 10 mm full bore reamer was then used to drill. Again, the bone quality was not great. The tunnel was then carefully rasped and then care was placed to prevent fluid egress. Attention was then directed to the femoral tunnel. Using the straight guide, the Beath pin was then drilled through the center of the ACL footprint. Once this was confirmed by looking through the medial and lateral portals, the size 9 mm low profile reamer was drilled to a depth of about 25 mm. The graft length was going to be 9 x 23 mm for the femoral tunnel. The excess bone and debris was removed. The tunnel was then notched. A #2 Ethibond suture was then placed through the eyelet of the Beath pin and passed through the leg in an antegrade fashion to act as a passing suture. The graft which was placed on tension on the back table was then brought to the field and passed under arthroscopic and direct visualization to be well seated in the femoral tunnel. This was then secured with a 7 x 20 mm SoftSilk screw with good purchase. The knee was then taken to full extension, found to not impinge anteriorly. The knee was then cycled approximately 20 times to remove any creep or stress from the graft after which the scope was positioned back to the joint to visualize the graft which had not changed in position. The knee was then placed in gentle flexion to about 20 degrees with posterior drawer and tension on the tibial sutures. The size 9 x 25 mm screw was placed with good purchase. The knee was then taken through range of motion and Charlie was assessed and found to be stable. The scope was brought back to the joint. The graft was visualized and found to be in good position. The excess bone was removed using a rongeur. Wounds were then copiously irrigated with sterile saline and closed with 3-0 nylon and 2-0 Vicryl as well as 3-0 Monocryl in a layered fashion. Sterile dressings were applied. The knee was intra-articularly injected with 0.25% ropivacaine. Sterile dressings were applied, a Cryo/Cuff and a hinged knee brace locked in extension. She was awoken from anesthesia and transferred to PACU in stable condition. POSTOPERATIVE PLAN: She will be weightbearing as tolerated. Range of motion as tolerated. She will be discharged on pain medication and antibiotics, brace for 4 weeks locked in extension while walking. She will start therapy this week. DVT prophylaxis was considered but deferred due to no previous or personal family history. I will see the patient back in 6 to 8 days. [id number]/[facility] #: [id number] PAIGE
== END 2018-01-03 10:12 | disposition home or self-care (01) ==
LOC: OREAST 06:22
PROVIDERS: ATTEND Orthopaedic Surgery
DX: S83.511A Sprain of anterior cruciate ligament of right knee, initial encounter (principal); M17.11 Unilateral primary osteoarthritis, right knee; M25.361 Other instability, right knee; D64.9 Anemia, unspecified; Z88.5 Allergy status to narcotic agent; X58.XXXA Exposure to other specified factors, initial encounter
CPT/HCPCS: A9270-GY; C1713; C1776; J0690; J1100; J1200; J1885; J2001; J2704; J2795; J3010

== ENCOUNTER 2020-03-28 15:14 | Inpatient (IN) ==
[2020-03-28] MEDS ORDERED: NS 0.9% 1000 ml BAG 1,000 ML IV.FLUID IV ONE (15:45)
[2020-03-28] MEDS ORDERED: Vancomycin 1,500 MG in NS 0.9% 250 ml 250 ML IVPB ONE (15:46)
[2020-03-28] MEDS ORDERED: Piperacillin/Tazobac ADVAN 3.375 GM in NS 0.9% 100 ml BAG 100 ML IV ONE (15:46)
[2020-03-28 16:16] LABS: ABS Monocytes 0.5 10^3/ul (0-0.8); ABS Neutrophils 6.4 10^3/ul (1.5-7.7); Eosinophil % 0.5 %; Hematocrit 40 % (35-47); Hemoglobin 13.5 g/dL (12.0-16.0); Lymphocyte % 13.1 %; Mean Corpuscular HGB Conc 34 g/dL (31-36); Mean Corpuscular Hemoglobin 33 pg (27-31); Mean Corpuscular Volume 97 fL (80-97); Mean Platelet Volume 9.2 fL (7.4-10.4); Nucleated Red Blood Cells % 0.1; Platelet Count 221 10^3/uL (150-450); Red Blood Count 4.07 10^6 /uL (3.70-4.87); Red Cell Distribution Width 14 % (10-15)
[2020-03-28 16:23] LABS: Activated Partial Thrombo Time 26.1 seconds (26.0-38.0); INR 0.98 (0.82-1.09)
[2020-03-28 16:37] LABS: Albumin 3.8 g/dL (3.2-5.2); Albumin/Globulin Ratio 1.3 (1-3); BUN/Creatinine Ratio 6.8 (8-20); C Reactive Protein 27.61 mg/L (<8.01); Calcium 9.1 mg/dL (8.6-10.3); EGFR African American 103.9 (>60); EGFR Non-African American 85.8 (>60); Globulin 2.9 g/dL (2-4); Potassium 3.4 mmol/L (3.5-5.0); Total Bilirubin 0.5 mg/dL (0.2-1.0); Total Protein 6.7 g/dL (6.4-8.9)
[2020-03-28 16:39] LABS: Troponin I 0.01 ng/mL (<0.03)
[2020-03-28] MEDS ORDERED: NS 0.9% 250 ml 250 ML ONE (16:56)
[2020-03-28] MEDS ORDERED: Gadoteridol (CONTRAST) 279.3 MG/ML 10 ML IV ONE (19:21)
[2020-03-28] MEDS ORDERED: diPHENhydraMINE 25 mg TAB PO PRN (21:04)
[2020-03-28] MEDS ORDERED: Zosyn per Pharmacy NOTE FOLLOW UP SCH (22:00)
[2020-03-28] MEDS ORDERED: Potassium Chlor 10 meq TAB PO ONE (22:14)
[2020-03-28 23:04] LABS: Urine Appearance Clear; Urine Bilirubin Negative (Negative); Urine Blood Negative (Negative); Urine Color Straw; Urine Glucose Negative (Negative); Urine Ketones Negative (Negative); Urine Nitrite Negative (Negative); Urine Protein Negative (Negative); Urine Specific Gravity 1.013 (1.010-1.030); Urine Urobilinogen Negative (Negative)
[2020-03-28] MEDS: Piperacillin/Tazobac ADVAN 3.375 GM in NS 0.9% 100 ml BAG 100 ML IV SCH (23:47)
[2020-03-28] MEDS: NS 0.9% 1000 ml BAG 1,000 ML IV SCH (23:47)
[2020-03-29 05:22] LABS: ABS Basophils 0.1 10^3/ul (0-0.2); ABS Eosinophils 0.1 10^3/ul (0-0.6); ABS Lymphocytes 1.2 10^3/ul (1.0-4.8); ABS Monocytes 0.4 10^3/ul (0-0.8); ABS Neutrophils 4.4 10^3/ul (1.5-7.7); Eosinophil % 1.2 %; Hematocrit 34 % (35-47); Hemoglobin 11.9 g/dL (12.0-16.0); Lymphocyte % 19.1 %; Mean Corpuscular HGB Conc 35 g/dL (31-36); Mean Corpuscular Hemoglobin 34 pg (27-31); Mean Corpuscular Volume 98 fL (80-97); Mean Platelet Volume 9.3 fL (7.4-10.4); Nucleated Red Blood Cells % 0.1; Platelet Count 181 10^3/uL (150-450); Red Blood Count 3.49 10^6 /uL (3.70-4.87); Red Cell Distribution Width 14 % (10-15); White Blood Count 6.2 10^3/uL (3.5-10.8)
[2020-03-29 05:33] LABS: INR 1.05 (0.82-1.09)
[2020-03-29 05:42] LABS: BUN/Creatinine Ratio 5.4 (8-20); C Reactive Protein 49.92 mg/L (<8.01); EGFR African American 102.2 (>60); EGFR Non-African American 84.5 (>60); Potassium 3.7 mmol/L (3.5-5.0)
[2020-03-29] MEDS: Piperacillin/Tazobac ADVAN 3.375 GM in NS 0.9% 100 ml BAG 100 ML IV SCH ×3 (06:31→22:05)
[2020-03-29 10:22] LABS: Erythrocyte Sed Rate 10 mm/Hr (0-19)
[2020-03-29 11:21] LABS: Phosphorus 3.5 mg/dL (2.5-5.0)
[2020-03-29] MEDS ORDERED: Midazolam 2 mg/2 ml VIAL 1 mg/ml 2 ml VIAL (2 mg) ONE (15:30)
[2020-03-29] MEDS ORDERED: Dexamethasone IV 4 MG/ML VIAL 1 ml VIAL ONE (15:31)
[2020-03-29] MEDS ORDERED: Ondansetron 4 mg VIAL 2 MG/ML 2 ml VIAL ONE ×2 (15:31→17:52)
[2020-03-29] MEDS ORDERED: fentaNYL 250 mcg/5 ml 50 MCG/ML 5 ml VIAL (250 MCG) ONE (15:31)
[2020-03-29] MEDS ORDERED: Lidocaine 2% PF 5 ML VIAL ONE (15:33)
[2020-03-29] MEDS ORDERED: Bupivacaine 0.5% 50 ML MDV VIAL ONE (15:41)
[2020-03-29] MEDS ORDERED: ceFAZolin VIAL VIAL ONE (16:53)
[2020-03-29] MEDS ORDERED: diPHENhydraMINE IV 50 MG/ML 1 ml VIAL (BENADRYL) IV PRN (17:45)
[2020-03-29] MEDS ORDERED: Ondansetron 4 mg VIAL 2 MG/ML 2 ml VIAL IV PRN (17:45)
[2020-03-29] MEDS ORDERED: Naloxone 0.4 mg VIAL 0.4 mg/ml 1 ml VIAL IV PRN (17:45)
[2020-03-29] MEDS ORDERED: fentaNYL 100 mcg/2 ml 50 MCG/ML VIAL ONE (17:51)
[2020-03-29] MEDS: fentaNYL 100 mcg/2 ml 50 MCG/ML VIAL IV PRN ×2 (17:54→18:04)
[2020-03-29] MEDS ORDERED: diPHENhydraMINE IV 50 MG/ML 1 ml VIAL (BENADRYL) ONE (18:12)
[2020-03-29] MEDS ORDERED: Naloxone 0.4 mg VIAL 0.4 mg/ml 1 ml VIAL ONE (18:34)
[2020-03-29] MEDS: NS 0.9% 1000 ml BAG 1,000 ML IV SCH (19:10)
[2020-03-30] MEDS: NS 0.9% 1000 ml BAG 1,000 ML IV SCH ×2 (04:02→16:31)
[2020-03-30 05:28] LABS: ABS Lymphocytes 0.5 10^3/ul (1.0-4.8); ABS Monocytes 0.1 10^3/ul (0-0.8); ABS Neutrophils 6.6 10^3/ul (1.5-7.7); Hematocrit 35 % (35-47); Hemoglobin 11.7 g/dL (12.0-16.0); Lymphocyte % 6.9 %; Mean Corpuscular HGB Conc 34 g/dL (31-36); Mean Corpuscular Hemoglobin 33 pg (27-31); Mean Corpuscular Volume 98 fL (80-97); Mean Platelet Volume 9.6 fL (7.4-10.4); Platelet Count 206 10^3/uL (150-450); Red Blood Count 3.54 10^6 /uL (3.70-4.87); Red Cell Distribution Width 14 % (10-15); White Blood Count 7.2 10^3/uL (3.5-10.8)
[2020-03-30 05:49] LABS: BUN/Creatinine Ratio 9.1 (8-20); C Reactive Protein 45.86 mg/L (<8.01); Calcium 8.4 mg/dL (8.6-10.3); EGFR African American 97.7 (>60); EGFR Non-African American 80.7 (>60); Potassium 3.8 mmol/L (3.5-5.0)
[2020-03-30] MEDS: Piperacillin/Tazobac ADVAN 3.375 GM in NS 0.9% 100 ml BAG 100 ML IV SCH ×3 (06:19→22:26)
[2020-03-30] MEDS ORDERED: Rabies VIRUS VACCINE (RabAvert) 2.5 UNITS VIAL IM ONE (09:00)
[2020-03-30] MEDS: Heparin 5000 UNITS/ML 1 mL VIAL SUBCUT SCH (22:26)
[2020-03-31 05:32] LABS: ABS Eosinophils 0.1 10^3/ul (0-0.6); ABS Lymphocytes 1.8 10^3/ul (1.0-4.8); ABS Monocytes 0.4 10^3/ul (0-0.8); ABS Neutrophils 4.8 10^3/ul (1.5-7.7); Eosinophil % 0.9 %; Hematocrit 32 % (35-47); Hemoglobin 10.5 g/dL (12.0-16.0); Lymphocyte % 25.1 %; Mean Corpuscular HGB Conc 33 g/dL (31-36); Mean Corpuscular Hemoglobin 34 pg (27-31); Mean Corpuscular Volume 101 fL (80-97); Mean Platelet Volume 9.4 fL (7.4-10.4); Nucleated Red Blood Cells % 0.1; Platelet Count 186 10^3/uL (150-450); Red Blood Count 3.15 10^6 /uL (3.70-4.87); Red Cell Distribution Width 14 % (10-15); White Blood Count 7.1 10^3/uL (3.5-10.8)
[2020-03-31] MEDS: Piperacillin/Tazobac ADVAN 3.375 GM in NS 0.9% 100 ml BAG 100 ML IV SCH ×3 (05:52→22:07)
[2020-03-31] MEDS: Heparin 5000 UNITS/ML 1 mL VIAL SUBCUT SCH ×3 (05:52→22:09)
[2020-04-01 05:15] LABS: ABS Basophils 0.1 10^3/ul (0-0.2); ABS Eosinophils 0.1 10^3/ul (0-0.6); ABS Lymphocytes 1.9 10^3/ul (1.0-4.8); ABS Monocytes 0.4 10^3/ul (0-0.8); ABS Neutrophils 2.5 10^3/ul (1.5-7.7); Eosinophil % 1.9 %; Hematocrit 34 % (35-47); Hemoglobin 11.5 g/dL (12.0-16.0); Lymphocyte % 39.2 %; Mean Corpuscular HGB Conc 34 g/dL (31-36); Mean Corpuscular Hemoglobin 33 pg (27-31); Mean Corpuscular Volume 99 fL (80-97); Mean Platelet Volume 9.3 fL (7.4-10.4); Platelet Count 197 10^3/uL (150-450); Red Blood Count 3.48 10^6 /uL (3.70-4.87); Red Cell Distribution Width 14 % (10-15); White Blood Count 4.9 10^3/uL (3.5-10.8)
[2020-04-01] MEDS: Piperacillin/Tazobac ADVAN 3.375 GM in NS 0.9% 100 ml BAG 100 ML IV SCH ×3 (05:54→22:01)
[2020-04-01] MEDS: Heparin 5000 UNITS/ML 1 mL VIAL SUBCUT SCH ×3 (05:55→22:02)
[2020-04-01] MEDS ORDERED: Buffered Lidocaine 1% SYRIN 1 ml INTRADERM ONE (14:09)
[2020-04-01] MEDS ORDERED: Scopolamine PATCH Remove NOTE PATCH OFF ONE (17:46)
[2020-04-02] MEDS: Heparin 5000 UNITS/ML 1 mL VIAL SUBCUT SCH (05:44)
[2020-04-02 05:51] LABS: ABS Eosinophils 0.1 10^3/ul (0-0.6); ABS Lymphocytes 1.4 10^3/ul (1.0-4.8); ABS Monocytes 0.4 10^3/ul (0-0.8); Eosinophil % 2.5 %; Hematocrit 32 % (35-47); Hemoglobin 11.2 g/dL (12.0-16.0); Lymphocyte % 27.4 %; Mean Corpuscular HGB Conc 35 g/dL (31-36); Mean Corpuscular Hemoglobin 34 pg (27-31); Mean Corpuscular Volume 97 fL (80-97); Mean Platelet Volume 8.6 fL (7.4-10.4); Platelet Count 219 10^3/uL (150-450); Red Blood Count 3.34 10^6 /uL (3.70-4.87); Red Cell Distribution Width 14 % (10-15); White Blood Count 4.9 10^3/uL (3.5-10.8)
[2020-04-02 06:07] LABS: BUN/Creatinine Ratio 7.1 (8-20); C Reactive Protein 4.61 mg/L (<8.01); EGFR African American 88.3 (>60); Potassium 3.5 mmol/L (3.5-5.0)
[2020-04-02] MEDS ORDERED: cefTRIAXone 2 GM ADDV.VIAL 2 GM in NS 0.9% 100 ml BAG 100 ML IV SCH (09:00)
[2020-04-02 11:35] VITALS: BP 162/91
== END 2020-04-02 14:35 | disposition home or self-care (01) | DRG 316 ==
LOC: SSU 15:14 → ED 15:14 → SSU 23:00
PROVIDERS: ADMIT Student in an Organized Health Care Education/Training Program; ATTEND Internal Medicine